=== PATIENT | female | born 1980 | race African-American/Black ===

== ENCOUNTER 2019-06-17 20:21 | Emergency (ER) | payer SELFPAY ==
[2019-06-17] MEDS ORDERED: Ketorolac Tromethamine 30 MG/ML VIAL ONE (22:35)
== END 2019-06-17 22:31 | disposition home or self-care (01) ==
LOC: ERS 20:21
DX: K03.81 Cracked tooth (principal); J45.909 Unspecified asthma, uncomplicated; F41.9 Anxiety disorder, unspecified; F32.9 Major depressive disorder, single episode, unspecified
CPT/HCPCS: 96372; 99283; J1885